=== PATIENT | female | born 1955 | race African-American/Black ===

== ENCOUNTER → 2025-07-30 | Outpatient (CLI) | payer MEDICARE ==
[~2025-07-30] MED LIST: AMLO5TAB88 PO; LOSA50TA41 PO; REGADENOSON 0.4 MG/5 ML IV SCH; SIMV-43 PO
== END | disposition home or self-care (01) ==
LOC: NM 08:32
PROVIDERS: ATTEND Internal Medicine Cardiovascular Disease
DX: I48.0 Paroxysmal atrial fibrillation (principal)
CPT/HCPCS: 78452; 93017; J2785; A9500